=== PATIENT | male | born 2000 | race Caucasian/White ===

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

== ENCOUNTER 2021-12-10 14:40 | Emergency (ER) | payer BC ==
[~2021-12-10] VITALS: Ht 170.2 cm; Wt 79.5 kg
[2021-12-10] VITALS (7 sets, daily range): BP systolic 129–144; BP diastolic 70–88
[~2021-12-10 14:40] MED LIST changes: +FLEXERIL PO
[2021-12-10] MEDS ORDERED: CIPROFLOXACN500 MG PO (16:06)
[2021-12-10] MEDS ORDERED: BACTRIM DS1 TAB PO (16:06)
== END 2021-12-10 17:08 | disposition home or self-care (01) | DRG 556 ==
LOC: ED 14:40
DX: M25.572 Pain in left ankle and joints of left foot (principal); V80.010A Animal-rider injured by fall from or being thrown from horse in noncollision accident, initial encounter; Y93.59 Activity, other involving other sports and athletics played individually; Y92.39 Other specified sports and athletic area as the place of occurrence of the external cause; S91.332A Puncture wound without foreign body, left foot, initial encounter; L03.116 Cellulitis of left lower limb; W45.0XXA Nail entering through skin, initial encounter; Y92.009 Unspecified place in unspecified non-institutional (private) residence as the place of occurrence of the external cause; J45.909 Unspecified asthma, uncomplicated